=== PATIENT | female | born 1940 | race Caucasian/White ===

== ENCOUNTER 2017-03-21 14:09 | Inpatient (IN) | payer OTHER, BC ==
[~2017-03-21] VITALS: Ht 157.5 cm; Wt 91.2 kg
--- NOTE | ~2017-03-21 | EKG ---
[address] [place] [address] ELECTROCARDIOGRAM REPORT Name: ROSEANNE DELCID Room #: 215- ADM IN M.R.#: [id number] Admission: 03/21/17 Attend Phys: Rodney Bullard MD Discharge: Date of : 42 Report #: [id number] THIS REPORT FOR: //name// [facility] Test Date: 2017-03-23 Test Time: 06:41:00 Pat Name: ROSEANNE DELCID Department: Room: 215 Gender: F Dress Shoe Inspector: alhaji : 1940 Requested By: Max Delarosa Order Number: [id number] MD: Flash Bates Measurements Intervals [place] Rate: 60 P: 33 [place]: 193 QRS: -28 QRSD: 83 T: 63 QT: 440 QTc: 440 Interpretive Statements Sinus rhythm Nonspecific ST segment abnormality Compared to ECG 03/21/2017 18:53:37 No significant changes Electronically Signed On 03-23-2017 9:08:43 CDT by Flash Bates [email or web address] <ELECTRONICALLY SIGNED> By: Flash Bates MD, [facility] 03/23/17 0908 0 0 Flash Bates MD, [facility] /EPI
--- NOTE | ~2017-03-21 | CATHLAB ---
[facility] [place] [address] INVASIVE PROCEDURE REPORT Name: ROSEANNE DELCID Room #: 215-P ADM IN .R.#: [id number] Admission: 03/21/17 Attend Phys: Rodney Bullard, Discharge: Date of : 44 Date of Service: 03/22/17 1223 Report #: [id number] THIS REPORT FOR: //name// APPROVED REPORT Patient Details Patient Status: In-Patient Room #: The patient is a 76 year-old female Event Personnel Max Delarosa Commodity Trader, Kameron Anderson RN, Luiza Presley, Alexia Morris Monitor, Jacklyn Green CVT Monitor, Og France Producer Assistant Procedures Performed Art Access - R femoral artery* Left Heart Cath w/or w/o Coronaries [id number] [facility] BMS Place w/wo Plasty Single OM 2272993 BMSSINGLE Hemostasis w/ Mynx 40149 Initial Mod Sed Same Phys/QHP Gr5y 922728 26452 Mod Sed Same Phys/QHP Ea 151590 Indication Dyspnea, Unstable angina Risk Factors Hypercholesterolemia, Coronary Artery DiseaseHypertension Previous Procedures/Diagnoses Previous HI Procedure Narrative The patient was brought urgently to the Cardiac Catheterization Laboratory and was prepped and draped in a sterile manner. The Right Groin^ was infiltrated with 1% Lidocaine subcutaneous anesthesia. A PINNACLE 5FR Sheath #[id number] sheath was inserted into the RFA^. Coronary angiography was performed using coronary diagnostic catheters. The right coronary system was accessed and visualized with a JR 4 catheter. The left coronary system was accessed and visualized with a JL 4 catheter. The left ventricle was accessed and visualized with a Pigtail catheter. Left ventricular/Aortic Valve gradient assessed via catheter pullback. Left ventriculogram was performed in 30 degree projection. Pre-demployment femoral angiogram was performed . Closure device was deployed with a 6 Fr Mynx. The patient tolerated the procedure well and there were no complications associated with the procedure. There was no hematoma. [facility] [address] [place] [address] INVASIVE PROCEDURE REPORT Name: ROSEANNE DELCID Room #: 215-P [facility] IN ..#: [id number] Admission: 03/21/17 Attend Phys: Rodney Bullard, Discharge: Date of : 42 Date of Service: 03/22/17 1223 Report #: [id number] Intraoperative Conscious Sedation Sedation start time: 09:48 Case end Time: 10:24 Fentanyl 25.0 mcg Versed 1.0 mg Fluoro Time: 6.23 minutes Dose: 623 mGy Contrast Type and Amount: Omnipaque 245 ml Coronary Angiography The patient's coronary anatomy is right dominant. Diagnostic Cath Left Main Large-caliber vessel, with mild disease at the ostium, 20%. LAD Moderate stenosis in the mid segment, just after the takeoff of the first septal tie knitter helper, lesion is approximately 50-60%. The mid/distal segment is a small to moderate size caliber vessel with moderate diffuse disease, recommend medical therapy. Diagonal 1 Patent, no flow-limiting lesions. Diagonal 2 Mild disease in the proximal segment. Circumflex Mild disease in the proximal and distal segments. OM1 Moderate size caliber vessel, traveling down the anterolateral wall and supplying multiple branches throughout. There is a severe stenosis in the proximal segment, 90%. OM2 Small size caliber vessel, mild disease. Right Coronary Small to moderate size caliber vessel with a moderate stenosis at the proximal segment, 50%. R PDA Small size caliber vessel, with a severe stenosis at the proximal segment, 70%. Recommend medical therapy. Left Ventriculography The left ventricle is normal in size with low-normal contractility. The left ventricular ejection fraction is estimated to be 50%. There is mild hypokinesis of the anterolateral segment. Hemodynamics The aortic pressure is 195/83 mmHg with a mean of 173 mmHg. The left ventricular pressure is 173/4 mmHg with a mean of mmHg. The left ventricular end diastolic pressure is 24 mmHg. PCI Technique Lesion Anticoagulation was achieved with Angiomax. Percutaneous coronary intervention was performed on the first obtuse marginal branch segment. The lesion stenosis prior to intervention was 90% with SHANNON 2 flow. A VISTA 6FR JL4 #[id number] Guide Catheter was used to engage the [address] [address] INVASIVE PROCEDURE REPORT Name: ROSEANNE DELCID Room #: 215-P ADM IN M.R.#: [id number] Admission: 03/21/17 Attend Phys: Rodney Bullard, Discharge: Date of : 42 Date of Service: 03/22/17 1223 Report #: [id number] ostium. A Luge Wire .014 x 182CM #[id number] Interventional Guidewire was used to cross the lesion. BALLOON DILATION A Balloon catheter Mozec 2.5 x 9 was inserted and inflated up to 8.00atm for 16seconds. STENT DEPLOYMENT A bare metal stent INTEGRITY RX 2.5 X 8 #[id number] was inserted and inflated up to 16.00atm for 27seconds. Final angiography reveals 0 % stenosis with SHANNON 3 flow. Conclusion 1. Successful insertion of a bare metal stent into the proximal segment of the first obtuse marginal artery. 2. Moderate to severe disease as noted above. Recommend medical therapy. 3. Recommend dual antiplatelet therapy. Recommendations Medical Therapy <ELECTRONICALLY SIGNED> By: Max Delarosa MD 03/22/17 1223 1223 1223 Max Delarosa MD /INF
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
--- NOTE | ~2017-03-21 | EKG ---
[address] [address] ELECTROCARDIOGRAM REPORT Name: ROSEANNE DELCID Room #: 215-P ADM IN M.R.#: [id number] Admission: 03/21/17 Attend Phys: Rodney Bullard MD Discharge: Date of : 42 Report #: [id number] THIS REPORT FOR: //name// [facility] Test Date: 2017-03-21 Test Time: 18:53:37 Pat Name: ROSEANNE DELCID Department: Room: 215 P Gender: F Transit Worker: Lori AGUERO : 1940 Requested By: Max Delarosa Order Number: [id number] MD: Flash Bates Measurements Intervals [place] Rate: 64 P: 27 [place]: 187 QRS: -34 QRSD: 85 T: 56 QT: 458 QTc: 473 Interpretive Statements Sinus rhythm Abnormal R-wave progression, early transition LVH with secondary repolarization abnormality Compared to ECG 03/21/2017 14:15:02 Left ventricular hypertrophy now present Early repolarization now present T-wave abnormality no longer present Electronically Signed On 03-22-2017 8:24:11 CDT by Flash Bates [email or web address] <ELECTRONICALLY SIGNED> By: Flash Bates MD, [facility] 03/22/17 0824 1853 1853 Flash Bates MD, [facility] /EPI
--- NOTE | ~2017-03-21 | EKG ---
[address] [place] [address] ELECTROCARDIOGRAM REPORT Name: ROSEANNE DELCID Room #: 170-2 ADM IN M.R.#: [id number] Admission: 03/21/17 Attend Phys: Rodney Bullard MD Discharge: Date of : 42 Report #: [id number] THIS REPORT FOR: //name// [facility] ED Test Date: 2017-03-21 Test Time: 14:15:02 Pat Name: ROSEANNE DELCID Department: Room: 170 Gender: F Gasoline Pump Mechanic: MARIA FERNANDA : 1940 Requested By: Mc Jewell Order Number: [id number] MD: Flash Bates Measurements Intervals [place] Rate: 75 P: 36 MO: 207 QRS: -30 QRSD: 79 T: 55 QT: 398 QTc: 445 Interpretive Statements Sinus rhythm Nonspecific T wave abnormality Compared to ECG 09/03/2016 07:36:25 No significant change was found Electronically Signed On 03-21-2017 16:50:46 CDT by Flash Bates [email or web address] <ELECTRONICALLY SIGNED> By: Flash Bates MD, [facility] 03/21/17 3950 1415 1415 Flash Bates MD, [facility] /EPI
--- NOTE | ~2017-03-21 | HC ---
[facility] [place] [address] [place] [address] CONSULTATION Name: ROSEANNE DELCID Room #: 215-P ADM IN M.R.#: [id number] Admission: 03/21/17 Attend Phys: Rodney Bullard MD Discharge: Date of : 42 Report #: [id number] THIS REPORT FOR: //name// CC: Rodney Arnold DATE OF SERVICE: 03/21/2017 INDICATION: Chest pains. HISTORY OF PRESENT ILLNESS: This is a 76-year-old female with a history of CAD, diabetes mellitus, hypertension, hypercholesterolemia, presenting with an episode of chest pain. She initially presented in August of this year with 1 episode of chest pain. She was found to have positive troponins, diagnosed with a non-ST elevation NV. The patient elected to continue with noninvasive stress testing, which revealed inferior wall infarct with mild ta-infarct ischemia. Medical therapy was pursued. She has been doing well until today when she developed a left-sided chest discomfort. She was resting when it occurred. She felt some nausea associated with the chest pain, lasted approximately 30 minutes in duration. By the time she came to the Emergency Room, the pain had resolved. There is no history of fever, chills, shortness of breath or congestion. PAST MEDICAL HISTORY: Non-STEMI in August 2016, hypertension, hyperlipidemia, diabetes mellitus, chronic anemia, end-stage liver disease secondary to HUERTAS, status post liver transplant in 2005. ALLERGIES: INCLUDE TYLENOL, CODEINE, ERYTHROMYCIN AND SULFA. MEDICATIONS: Include atorvastatin 20 mg daily, Toprol-XL 25 mg, losartan 50 mg daily, aspirin once a day, Prograf. SOCIAL HISTORY: Denies tobacco use. FAMILY HISTORY: Negative for premature CAD. REVIEW OF SYSTEMS: A full 10-point review of systems performed, only the pertinent positives and negatives as described in the HPI. PHYSICAL EXAMINATION: VITAL SIGNS: Blood pressure is 160/80, heart rate is 75 beats per minute. GENERAL APPEARANCE: This is a well-developed, well-nourished female in no acute respiratory distress. HEAD AND EYES: Normocephalic. Sclerae are anicteric. ENT: Oral mucosa moist. NECK: Supple. LUNGS: Clear to auscultation. [facility] [address] [place] [address] CONSULTATION Name: ROSEANNE DELCID Room #: [address] [place] [address] IN M.R.#: [id number] Admission: 03/21/17 Attend Phys: Rodney Bullard MD Discharge: Date of : 42 Report #: [id number] CARDIAC: Regular rate and rhythm, S1, S2 positive. ABDOMEN: Soft. EXTREMITIES: No major joint deformities. No edema. LABORATORY VALUES: Troponin is negative. ECG reveals sinus rhythm, nonspecific T-wave abnormalities. ASSESSMENT AND PLAN: 1. Chest pain syndrome, of concern is a recent non-ST elevation myocardial infarction, now presenting with similar complaints. We discussed the pros and cons of medical therapy versus a cardiac catheterization. All questions were answered and she wishes to proceed with an angiogram. 2. Hypertension, continue with medications, follow her blood pressure. 3. Hypercholesterolemia, continue with statin therapy. 4. Diabetes mellitus, follow fingerstick. 5. History of liver transplant, continue with her medications. Thank you for allowing me to participate in the care of your patient. <ELECTRONICALLY SIGNED> By: Max Delarosa MD 03/22/17 0821 1832 0254 Max Delarosa MD /nt
--- NOTE | ~2017-03-21 | EKG ---
[address] [place] [address] ELECTROCARDIOGRAM REPORT Name: ROSEANNE DELCID Room #: 215- ADM IN M.R.#: [id number] Admission: 03/21/17 Attend Phys: Rodney Bullard MD Discharge: Date of : 42 Report #: [id number] THIS REPORT FOR: //name// [facility] Test Date: 2017-03-22 Test Time: 11:41:23 Pat Name: ROSEANNE DELCID Department: Room: 215 P Gender: F Paid Search Analyst: Leydi HUERTAS : 1940 Requested By: Max Delarosa Order Number: [id number] MD: Flash Bates Measurements Intervals [place] Rate: 80 P: 30 [place]: 214 QRS: -26 QRSD: 87 T: 57 QT: 407 QTc: 470 Interpretive Statements Sinus rhythm Borderline prolonged UT interval Abnormal R-wave progression, early transition LVH by voltage Compared to ECG 03/21/2017 18:53:37 No significant change was found Electronically Signed On 03-23-2017 8:20:42 CDT by Flash Bates [email or web address] <ELECTRONICALLY SIGNED> By: Flash Bates MD, [facility] 03/23/17 0820 1141 1141 Flash Bates MD, [facility] /EPI
[2017-03-21 14:09] VITALS: BP 160/64
[~2017-03-21 14:09] MED LIST: ADULT LOW DOSE81 MG PO; ATORVASTATIN CA20 MG PO; COZAAR 50 MG TA50 M1 PO; LANTUS100 UNIT/M SUBQ; METOPROLOL SUCC25 M1 PO; PROGRAF0.5 MG PO
[2017-03-21 15:25] LABS: HEMATOCRIT 32.5 % (37.0-47.0); HEMOGLOBIN 10.2 gm/dL (12.0-15.0); MANUAL DIFF YES; MCH 23.1 pg (26.0-34.0); MCHC 31.5 g/dL (28.0-37.0); MCV 73.5 fL (80.0-100.0); PLATELET COUNT 295 thou/uL (150-400); RBC 4.42 mil/uL (4.20-5.00); RDW 20.2 % (10.5-14.5); WBC 4.2 thou/uL (4.0-11.0)
[2017-03-21 15:37] LABS: ANION GAP 8 mmol/L (7-16); BUN 15 mg/dL (7-18); CALCIUM 8.9 mg/dL (8.5-10.1); CHLORIDE 105 mmol/L (98-107); CO2 26 mmol/L (21-32); CREATININE 0.8 mg/dL (0.6-1.0); GLUCOSE 196 mg/dL (74-106); POTASSIUM 3.4 mmol/L (3.5-5.1); SODIUM 139 mmol/L (136-145)
[2017-03-21 15:39] LABS: APTT 28.3 Seconds (24.5-32.8); INR 1.1; PROTIME 11.2 Seconds (9.3-11.4)
[2017-03-21 15:54] LABS: ALBUMIN 3.2 g/dL (3.4-5.0); ALKALINE PHOSPHATASE 100 U/L (46-116); MAGNESIUM 1.7 mg/dL (1.8-2.4); SGOT 24 U/L (15-37); SGPT 16 U/L (30-65); TOTAL BILIRUBIN 0.5 mg/dL (<0.1-1.0); TOTAL PROTEIN 7.7 g/dL (6.4-8.2); TROPONIN-I < 0.04 ng/mL (<0.04-0.07)
[2017-03-21 16:45] LABS: ABSOLUTE NEUTROPHILS 3.3 thou/uL (1.4-8.2); ANISOCYTOSIS 1+; HYPOCHROMASIA 1+; MICROCYTES 1+; TOTAL CELL COUNT 100
[2017-03-21 17:13] VITALS: BP 160/64
[2017-03-21 19:47] VITALS: BP 147/56
[2017-03-21 23:33] VITALS: BP 148/71
[2017-03-22] VITALS (13 sets, daily range): BP systolic 123–156; BP diastolic 61–88
[2017-03-22 05:58] LABS: CHOLESTEROL 142 mg/dL (<200); HDL CHOLESTEROL 23 mg/dL (>40); LDL CHOLESTEROL 95 mg/dL (<100); TC:HDL 6.2 Ratio (Not establshd); TRIGLYCERIDE 122 mg/dL (<150); TROPONIN-I < 0.04 ng/mL (<0.04-0.07); VLDL 24 mg/dL (<40)
[2017-03-22 06:03] LABS: SERUM ASSESSMENT Clear
[2017-03-23 00:33] VITALS: BP 154/74
[2017-03-23 03:35] LABS: HEMATOCRIT 29.4 % (37.0-47.0); HEMOGLOBIN 9.5 gm/dL (12.0-15.0); MCH 23.8 pg (26.0-34.0); MCHC 32.4 g/dL (28.0-37.0); MCV 73.4 fL (80.0-100.0); RDW 20.1 % (10.5-14.5); WBC 4.3 thou/uL (4.0-11.0)
[2017-03-23 03:57] LABS: CALCIUM 8.7 mg/dL (8.5-10.1); CREATININE 0.8 mg/dL (0.6-1.0); POTASSIUM 4.2 mmol/L (3.5-5.1)
[2017-03-23 04:02] LABS: TROPONIN-I 1.86 ng/mL (<0.04-0.07)
[2017-03-23 04:21] VITALS: BP 146/61
[2017-03-23 07:50] VITALS: BP 138/51
[2017-03-23 10:47] VITALS: BP 120/49
[2017-03-23] MEDS ORDERED: EFFIENT10 MG PO (10:54)
[2017-03-23] MEDS ORDERED: COZAAR 50 MG TA50 M1 PO (10:56)
[2017-03-23] MEDS ORDERED: METOPROLOL SUCC25 M1 PO (10:56)
[2017-03-23 12:31] VITALS: BP 120/49
== END 2017-03-23 14:17 | disposition home or self-care (01) | DRG 249 ==
LOC: ER 14:09 → 2N 16:44 → EROBS 16:44 → 2N 18:14 → ENTRNSPT 03-23 13:59 → EDTRNSPTSTS 03-23 14:10 → 2N 03-23 14:17
PROVIDERS: Emergency Medicine; Hospitalist; Internal Medicine Cardiovascular Disease
PROC: B2111ZZ Fluoroscopy of Multiple Coronary Arteries using Low Osmolar Contrast (ICD-10-PCS; principal; 2017-03-22)
PROC: B2151ZZ Fluoroscopy of Left Heart using Low Osmolar Contrast (ICD-10-PCS; principal; 2017-03-22)
PROC: 02703DZ Dilation of Coronary Artery, One Artery with Intraluminal Device, Percutaneous Approach (ICD-10-PCS; principal; 2017-03-22)
PROC: 4A023N7 Measurement of Cardiac Sampling and Pressure, Left Heart, Percutaneous Approach (ICD-10-PCS; principal; 2017-03-22)
DX: I25.110 Atherosclerotic heart disease of native coronary artery with unstable angina pectoris (principal); Z94.4 Liver transplant status; K72.90 Hepatic failure, unspecified without coma; E11.9 Type 2 diabetes mellitus without complications; M54.32 Sciatica, left side; J45.909 Unspecified asthma, uncomplicated; L40.9 Psoriasis, unspecified; I10 Essential (primary) hypertension; E78.00 Pure hypercholesterolemia, unspecified; Z90.710 Acquired absence of both cervix and uterus; Z90.49 Acquired absence of other specified parts of digestive tract; Z79.899 Other long term (current) drug therapy; Z88.1 Allergy status to other antibiotic agents; Z88.2 Allergy status to sulfonamides; I25.2 Old myocardial infarction; Z88.6 Allergy status to analgesic agent; Z86.73 Personal history of transient ischemic attack (TIA), and cerebral infarction without residual deficits; Z83.3 Family history of diabetes mellitus
CPT/HCPCS: 10081

== ENCOUNTER → 2017-10-24 | Outpatient (CLI) | payer OTHER, BC ==
[~2017-10-24] MED LIST changes: +EFFIENT10 MG PO
--- NOTE | ~2017-10-24 | 2DMMODE ---
[facility] [address] [place] [address] 2 D/M-MODE ECHOCARDIOGRAM Name: ROSEANNE DELCID Room #: REG [facility]#: [id number] Admission: 10/24/17 Attend Phys: Max Delarosa MD Discharge: Date of : 42 Date of Service: 10/24/17 1557 Report #: [id number] THIS REPORT FOR: //name// APPROVED REPORT Study performed: 10/24/2017 13:48:17 EXAM: Comprehensive 2D, Doppler, and color-flow Echocardiogram Patient Location: Out-Patient Room #: Echo lab 2 Status: routine BSA: 1.63 HR: 77 bpm BP: 118/62 mmHg Other Information Study Quality: Adequate Indications CAD 2D Dimensions RVDd: 29.22 mm LVEF(%): 59.73 (>50%) IVSd: 10.44 (7-11mm) LVOT Diam: 19.51 (18-24mm) LVDd: 39.23 mm PWd: 10.03 (7-11mm) Ascending Ao: 31.33 (22-36mm) LVDs: 26.96 (25-40mm) Aortic Root: 32.85 mm IVC: 14.00 mm Mclean's LVEF: 59.73 % Volumes Left Atrial Volume (Systole) Single Plane 4CH: 32.70 mL Single Plane 2CH: 48.90 mL LA ESV Index: 30.00 mL/m2 Aortic Valve AoV Peak Frank.: 1.26 m/s AO Peak Gr.: 7.13 mmHg Mitral Valve E/A Ratio: 0.7 MV Decel. Time: 439.89 ms MV E Max Frank.: 0.64 m/s MV A Frank.: 0.95 m/s MV PHT: 127.57 ms [facility] Who@ [place] [address] 2 D/M-MODE ECHOCARDIOGRAM Name: ROSEANNE DELCID CHAVEZ Room #: REG [facility]#: [id number] Admission: 10/24/17 Attend Phys: Max Delarosa MD Discharge: Date of : 42 Date of Service: 10/24/17 1557 Report #: [id number] IVRT: 179.93 ms Pulmonary Valve PV Peak Frank.: 0.95 m/s PV Peak Gr.: 3.64 mmHg Pulmonary Vein P Vein S: 0.62 m/s P Vein A: 0.40 m/s P Vein D: 0.39 m/s P Vein A Dur.: 110.7 msec P Vein S/D Ratio: 1.59 Left Ventricle The left ventricle is normal size. There is normal left ventricular wall thickness. The left ventricular systolic function is normal. The left ventricular ejection fraction is within the normal range. LVEF is 55-60%. Grade I - abnormal relaxation pattern. Right Ventricle The right ventricle is normal size. The right ventricular systolic function is normal. Atria The left atrium size is normal. The right atrium size is normal. Aortic Valve The aortic valve is normal in structure. Mild aortic regurgitation. There is no aortic valvular stenosis. Mitral Valve The mitral valve is normal in structure. Mild mitral regurgitation. No evidence of mitral valve stenosis. Tricuspid Valve The tricuspid valve is normal in structure. There is no tricuspid valve regurgitation noted. Pulmonic Valve The pulmonary valve is normal in structure. Trace pulmonic regurgitation. Great Vessels The aortic root is normal in size. IVC is normal in size and collapses >50% with inspiration. Pericardium There is no pericardial effusion. [facility] [address] [place] [address] 2 D/M-MODE ECHOCARDIOGRAM Name: ROSEANNE DELCID Room #: REG [facility]#: [id number] Admission: 10/24/17 Attend Phys: Max Delarosa MD Discharge: Date of : 44 Date of Service: 10/24/17 1557 Report #: [id number] <Conclusion> The left ventricle is normal size. There is normal left ventricular wall thickness. The left ventricular systolic function is normal. Grade I - abnormal relaxation pattern. The right ventricle is normal size. The left atrium size is normal. Mild aortic regurgitation. Mild mitral regurgitation. There is no pericardial effusion. <ELECTRONICALLY SIGNED> By: Max Delarosa MD 10/24/17 1557 1557 1557 Max Delarosa MD /INF
== END ==
LOC: CV 10-06 15:32
DX: I08.0 Rheumatic disorders of both mitral and aortic valves (principal); I25.10 Atherosclerotic heart disease of native coronary artery without angina pectoris

== ENCOUNTER 2017-12-20 13:26 | Emergency (ER) | payer OTHER, BC ==
[~2017-12-20] VITALS: Ht 162.6 cm; Wt 66.7 kg
[2017-12-20 13:56] LABS: ABSOLUTE NEUTROPHILS 3.9 thou/uL (1.4-8.2); BASOPHILS 0.5 % (0.0-2.0); EOSINOPHILS 2.3 % (0.0-3.0); HEMATOCRIT 37.7 % (37.0-47.0); HEMOGLOBIN 12.7 gm/dL (12.0-15.0); LYMPHOCYTES 6.7 % (24.0-44.0); MCH 29.6 pg (26.0-34.0); MCHC 33.6 g/dL (28.0-37.0); MCV 88.1 fL (80.0-100.0); PLATELET COUNT 249 thou/uL (150-400); POLYS 79.5 % (36.0-66.0); RBC 4.28 mil/uL (4.20-5.00); RDW 16.6 % (10.5-14.5); WBC 4.9 thou/uL (4.0-11.0)
[2017-12-20 14:06] LABS: CALCIUM 9.7 mg/dL (8.5-10.1); CREATININE 0.8 mg/dL (0.6-1.0); POTASSIUM 3.7 mmol/L (3.5-5.1)
[2017-12-20] MEDS ORDERED: CLEOCIN HCL150 MG PO (16:26)
[2017-12-20] MEDS ORDERED: TRAMADOL 50 MG50 MG PO (16:31)
[2017-12-20 16:46] VITALS: BP 171/77
== END 2017-12-20 16:46 | disposition home or self-care (01) ==
LOC: ER 13:26
PROVIDERS: Physician Assistant
DX: L02.214 Cutaneous abscess of groin (principal); E11.9 Type 2 diabetes mellitus without complications; M54.30 Sciatica, unspecified side; J45.909 Unspecified asthma, uncomplicated; Z90.49 Acquired absence of other specified parts of digestive tract; Z88.2 Allergy status to sulfonamides; Z88.1 Allergy status to other antibiotic agents; Z88.5 Allergy status to narcotic agent

== ENCOUNTER 2017-12-22 22:08 | Emergency (ER) | payer OTHER, BC ==
[~2017-12-22] VITALS: Ht 162.6 cm; Wt 57.6 kg
[~2017-12-22 22:08] MED LIST changes: +CLEOCIN HCL150 MG PO; +TRAMADOL 50 MG50 MG PO
[2017-12-22 22:51] VITALS: BP 174/70
== END 2017-12-22 22:56 | disposition home or self-care (01) ==
LOC: ER 22:08
DX: Z48.01 Encounter for change or removal of surgical wound dressing (principal); E11.9 Type 2 diabetes mellitus without complications; J45.909 Unspecified asthma, uncomplicated; L40.9 Psoriasis, unspecified; Z90.710 Acquired absence of both cervix and uterus; Z90.89 Acquired absence of other organs; Z88.2 Allergy status to sulfonamides; Z88.1 Allergy status to other antibiotic agents; Z88.5 Allergy status to narcotic agent; Z88.6 Allergy status to analgesic agent

== ENCOUNTER 2018-05-01 15:39 | Inpatient (IN) | payer OTHER, BC ==
[~2018-05-01] VITALS: Ht 162.6 cm; Wt 59.9 kg
[2018-05-01 15:40] VITALS: BP 186/64
[2018-05-01 16:34] LABS: HEMATOCRIT 36.6 % (37.0-47.0); HEMOGLOBIN 12.5 gm/dL (12.0-15.0); MCH 30.3 pg (26.0-34.0); PLATELET COUNT 201 thou/uL (150-400); RBC 4.11 mil/uL (4.20-5.00); RDW 16.5 % (10.5-14.5); WBC 3.7 thou/uL (4.0-11.0)
[2018-05-01 16:37] LABS: BE(vivo) 2.1 mmol/L (-2 to +3); HCO3 27.3 mmol/L (22.0-26.0); PO2 VENOUS 27.2 mmHg (35.0-45.0)
[2018-05-01 16:47] LABS: CALCIUM 8.9 mg/dL (8.5-10.1); CREATININE 0.9 mg/dL (0.6-1.0); POTASSIUM 3.8 mmol/L (3.5-5.1)
[2018-05-01] MEDS ORDERED: VITAMIN D2000 UNIT PO (16:48)
[2018-05-01 16:51] LABS: TOTAL BILIRUBIN 0.8 mg/dL (<0.1-1.0); TOTAL PROTEIN 7.6 g/dL (6.4-8.2)
[2018-05-01 17:03] LABS: ABSOLUTE NEUTROPHILS 2.9 thou/uL (1.4-8.2); ANISOCYTOSIS 1+
[2018-05-01 17:30] LABS: URINE BILIRUBIN NEGATIVE (Negative); URINE BLOOD NEGATIVE (Negative); URINE CLARITY CLEAR; URINE COLOR YELLOW; URINE GLUCOSE-RANDOM* 3+ (Negative); URINE KETONES NEGATIVE (Negative); URINE NITRITE-REFLEX NEGATIVE (Negative); URINE PROTEIN (DIPSTICK) TRACE (Negative); URINE SPECIFIC GRAVITY 1.015 (1.005-1.035); URINE UROBILINOGEN 0.2 E.U./dl (0.2-1.0)
[2018-05-01 17:31] LABS: URINE LEUKOCYTES-REFLEX TRACE (Negative)
[2018-05-01 18:43] VITALS: BP 180/68
[2018-05-01 19:12] VITALS: BP 173/72
[2018-05-01 19:13] VITALS: BP 173/72
[2018-05-01 20:36] VITALS: BP 177/55
[2018-05-02 04:05] VITALS: BP 153/60
[2018-05-02 06:00] LABS: HEMATOCRIT 38.8 % (37.0-47.0); MCH 29.8 pg (26.0-34.0); MCHC 33.4 g/dL (28.0-37.0); MCV 89.1 fL (80.0-100.0); RBC 4.36 mil/uL (4.20-5.00); RDW 16.8 % (10.5-14.5); WBC 5.2 thou/uL (4.0-11.0)
[2018-05-02 06:08] LABS: GLYCOHEMOGLOBIN (HGB A1C) 8.6 % (4.8-5.6)
[2018-05-02 06:13] LABS: CALCIUM 9.2 mg/dL (8.5-10.1); CREATININE 0.8 mg/dL (0.6-1.0); POTASSIUM 3.8 mmol/L (3.5-5.1)
[2018-05-02 07:22] VITALS: BP 141/53
[2018-05-02] MEDS ORDERED: TRULICITY1.5 MG/0.5 SUBQ (14:11)
[2018-05-02 16:05] VITALS: BP 138/52
[2018-05-02 19:38] VITALS: BP 131/51
[2018-05-03 03:50] VITALS: BP 145/56
[2018-05-03 07:55] VITALS: BP 150/48
[2018-05-03 16:12] VITALS: BP 138/53
[2018-05-03 19:37] VITALS: BP 172/56
[2018-05-04 04:45] VITALS: BP 130/47
[2018-05-04 10:02] VITALS: BP 141/37
[2018-05-04] MEDS ORDERED: GLUCOPHAGE500 MG PO (10:02)
[2018-05-04] MEDS ORDERED: LOPRESSOR50 PO (10:02)
== END 2018-05-04 14:20 | DRG 637 ==
LOC: ER 15:39 → EROBS 18:19 → 4E 18:19
PROVIDERS: Hospitalist; Physician Assistant
DX: E11.65 Type 2 diabetes mellitus with hyperglycemia (principal); E43 Unspecified severe protein-calorie malnutrition; G93.41 Metabolic encephalopathy; Z94.4 Liver transplant status; I25.10 Atherosclerotic heart disease of native coronary artery without angina pectoris; E78.5 Hyperlipidemia, unspecified; I10 Essential (primary) hypertension; S09.90XA Unspecified injury of head, initial encounter; J45.909 Unspecified asthma, uncomplicated; E55.9 Vitamin D deficiency, unspecified; K75.81 Nonalcoholic steatohepatitis (NASH); I25.2 Old myocardial infarction; Z90.49 Acquired absence of other specified parts of digestive tract; Z88.6 Allergy status to analgesic agent; Z88.2 Allergy status to sulfonamides; Z88.8 Allergy status to other drugs, medicaments and biological substances; Z90.710 Acquired absence of both cervix and uterus; Z91.14 Patient's other noncompliance with medication regimen; Z95.5 Presence of coronary angioplasty implant and graft; V89.2XXA Person injured in unspecified motor-vehicle accident, traffic, initial encounter; Y93.89 Activity, other specified; Y92.89 Other specified places as the place of occurrence of the external cause; Y99.8 Other external cause status; Z86.73 Personal history of transient ischemic attack (TIA), and cerebral infarction without residual deficits; Z79.899 Other long term (current) drug therapy; Z23 Encounter for immunization
CPT/HCPCS: 10084

== ENCOUNTER 2018-06-21 14:58 | Emergency (ER) | payer OTHER, BC ==
[~2018-06-21] VITALS: Ht 162.6 cm; Wt 54.0 kg
--- NOTE | ~2018-06-21 | EKG ---
[address] [address] ELECTROCARDIOGRAM REPORT Name: ROSEANNE DELCID Room #: REG [facility]#: [id number] Admission: 06/21/18 Attend Phys: Discharge: Date of : 44 Report #: [id number] THIS REPORT FOR: //name// [facility] ED Test Date: 2018-06-21 Test Time: 16:02:23 Pat Name: ROSEANNE DELCID Department: Room: Gender: F Bulk Station Agent: as : 1940 Requested By: Mracela Zheng Order Number: [id number] MD: Po Gooden Measurements Intervals [place] Rate: 55 P: -16 W[place]: 191 QRS: -30 QRSD: 87 T: 41 QT: 464 QTc: 444 Interpretive Statements Sinus rhythm Left ventricular hypertrophy Compared to ECG 03/23/2017 06:41:00 Left ventricular hypertrophy now present ST (T wave) deviation no longer present Electronically Signed On 06-21-2018 16:35:11 LEATHER SEASONER by Po Gooden [email or web address] <ELECTRONICALLY SIGNED> By: Po Gooden MD 06/21/18 1635 1602 160 Po Gooden MD /CODY
[~2018-06-21 14:58] MED LIST changes: +GLUCOPHAGE500 MG PO; +LOPRESSOR50 PO; +TRULICITY1.5 MG/0.5 SUBQ; +VITAMIN D2000 UNIT PO
[2018-06-21 16:03] LABS: HEMATOCRIT 35.1 % (37.0-47.0); HEMOGLOBIN 11.8 gm/dL (12.0-15.0); MCH 29.7 pg (26.0-34.0); MCHC 33.7 g/dL (28.0-37.0); MCV 88.2 fL (80.0-100.0); PLATELET COUNT 197 thou/uL (150-400); RBC 3.98 mil/uL (4.20-5.00); RDW 16.8 % (10.5-14.5); WBC 3.9 thou/uL (4.0-11.0)
[2018-06-21 16:15] LABS: ANION GAP 9 mmol/L (7-16); BUN 15 mg/dL (7-18); CHLORIDE 101 mmol/L (98-107); CO2 28 mmol/L (21-32); CREATININE 0.7 mg/dL (0.6-1.0); GLUCOSE 107 mg/dL (74-106); POTASSIUM 3.8 mmol/L (3.5-5.1); SODIUM 138 mmol/L (136-145)
[2018-06-21 16:23] LABS: ALBUMIN 3.1 g/dL (3.4-5.0); SGOT 26 U/L (15-37); SGPT 19 U/L (30-65); TROPONIN-I <0.06 ng/mL (<0.06)
[2018-06-21 16:35] LABS: ATYPICAL LYMPHS 1 %
[2018-06-21 16:37] LABS: ANISOCYTOSIS 2+
[2018-06-21 16:57] VITALS: BP 142/61
== END 2018-06-21 18:16 | disposition home or self-care (01) ==
LOC: ER 14:58
PROVIDERS: Student in an Organized Health Care Education/Training Program
DX: R60.0 Localized edema (principal); E11.9 Type 2 diabetes mellitus without complications; J45.909 Unspecified asthma, uncomplicated; L40.9 Psoriasis, unspecified; Z90.710 Acquired absence of both cervix and uterus; Z90.49 Acquired absence of other specified parts of digestive tract; Z90.89 Acquired absence of other organs; Z88.6 Allergy status to analgesic agent; Z88.5 Allergy status to narcotic agent; Z88.1 Allergy status to other antibiotic agents; Z88.2 Allergy status to sulfonamides

== ENCOUNTER 2019-12-09 15:21 | Emergency (ER) | payer OTHER, BC ==
[~2019-12-09] VITALS: Ht 162.6 cm; Wt 58.1 kg
[2019-12-09 16:23] LABS: HEMATOCRIT 37.9 % (37.0-47.0); HEMOGLOBIN 12.6 gm/dL (12.0-15.0); MCH 30.3 pg (26.0-34.0); MCHC 33.4 g/dL (28.0-37.0); MCV 90.7 fL (80.0-100.0); PLATELET COUNT 228 thou/uL (150-400); RBC 4.18 mil/uL (4.20-5.00); RDW 18.1 % (10.5-14.5); WBC 2.9 thou/uL (4.0-11.0)
[2019-12-09 16:30] LABS: ANION GAP 9 mmol/L (7-16); BUN 13 mg/dL (7-18); CALCIUM 8.1 mg/dL (8.5-10.1); CHLORIDE 104 mmol/L (98-107); CO2 26 mmol/L (21-32); CREATININE 0.8 mg/dL (0.6-1.0); GLUCOSE 225 mg/dL (74-106); POTASSIUM 3.5 mmol/L (3.5-5.1); SODIUM 139 mmol/L (136-145)
[2019-12-09 16:44] LABS: ABSOLUTE NEUTROPHILS 2.1 thou/uL (1.4-8.2); ANISOCYTOSIS 1+; PLATELET ESTIMATE NORMAL
[2019-12-09 16:45] LABS: ALBUMIN 2.8 g/dL (3.4-5.0); SGOT 40 U/L (15-37); SGPT 17 U/L (30-65); TOTAL PROTEIN 6.9 g/dL (6.4-8.2); TROPONIN-I <0.06 ng/mL (<0.06)
[2019-12-09 17:55] VITALS: BP 148/63
--- NOTE | 2019-12-10 08:25 | EKG ---
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: AMARILIS : 1940 Requested By: Patricia Plummer Order Number: [id number] MD: Flash Bates Measurements Intervals [place] Rate: 81 P: 38 TN: 169 QRS: -29 QRSD: 100 T: 45 QT: 425 QTc: 494 Interpretive Statements Sinus rhythm Nonspecific ST segment abnormality Borderline prolonged QT interval Baseline wander in lead(s) V3 Compared to ECG 06/21/2018 16:02:23 No significant change was found Electronically Signed On 12-10-2019 8:23:49 CDT by Flash Bates [email or web address] <ELECTRONICALLY SIGNED> By: Flash Bates MD, [facility] 12/10/19 0823 1526 1526 Flash Bates MD, [facility] /EPI
== END 2019-12-09 17:55 | disposition home or self-care (01) ==
LOC: ER 15:21
PROVIDERS: Physician Assistant
DX: R07.89 Other chest pain (principal); R22.41 Localized swelling, mass and lump, right lower limb; M79.605 Pain in left leg; J45.909 Unspecified asthma, uncomplicated; E11.9 Type 2 diabetes mellitus without complications; Z88.6 Allergy status to analgesic agent; Z88.5 Allergy status to narcotic agent; Z88.1 Allergy status to other antibiotic agents; Z88.2 Allergy status to sulfonamides; Z79.899 Other long term (current) drug therapy; Z79.82 Long term (current) use of aspirin; Z90.710 Acquired absence of both cervix and uterus